=== PATIENT | male | born 1975 | race African-American/Black ===

== ENCOUNTER 2024-12-24 15:53 | Emergency (ER) | payer OTHER ==
[2024-12-24 15:58] VITALS: RESP 18; TEMP 98.3; BMI 23.7
[2024-12-24] MEDS ORDERED: MAG HYDROX/AL HYDROX/SIMETH 30 ML UNIT-DOSE CUP ONE (17:19)
[2024-12-24] MEDS ORDERED: FAMOTIDINE 20 MG/50 ML IVPB 20 MG/50 ML MG IVPB ONE (17:19)
[2024-12-24] MEDS ORDERED: ONDANSETRON 4 MG/2 ML VIAL ONE (17:19)
[2024-12-24] MEDS: ONDANSETRON 4 MG/2 ML VIAL IVPUSH ONE (17:50)
[2024-12-24] MEDS: MAG HYDROX/AL HYDROX/SIMETH 30 ML UNIT-DOSE CUP PO ONE (17:54)
[2024-12-24] MEDS: SODIUM CHLORIDE 0.9% 500 ML INFUS.BAG IV ONE (17:55)
[2024-12-24] MEDS: FAMOTIDINE 20 MG/50 ML IVPB 20 MG/50 ML MG IVPB ONE (17:55)
[2024-12-24 18:12] LABS: EPI CELLS 4 /uL (0-25.1); HYALINE CASTS 2 /uL (0-3.1); URINE APPEARANCE CLEAR; URINE BACTERIA 17 /uL (0-1359); URINE BILIRUBIN 1+ (NEGATIVE); URINE COLOR DK YELLOW; URINE GLUCOSE (UA) NEGATIVE (NEGATIVE); URINE KETONE TRACE (NEGATIVE); URINE LEUK ESTERASE TRACE (NEGATIVE); URINE NITRITE NEGATIVE (NEGATIVE); URINE PROTEIN 2+ (NEGATIVE); URINE RBC 63 /uL (0-23.9); URINE UROBILINOGEN 1.0 mg/dL (0.2-1.0); URINE WBC 11 /uL (0-25.8)
[2024-12-24 18:25] LABS: MCHC 35.5 g/dl (32.3-36.5); MEAN CELL VOLUME 89.4 fl (79.0-92.2); MEAN PLT VOLUME 9.0 fl (9.4-12.4); RDW 11.4 % (12.1-15.9)
[2024-12-24 18:43] LABS: GLUCOSE,RANDOM 109.0 mg/dL (74-106); TOT PROT 7.6 g/dl (6.4-8.2)
[2024-12-24 18:44] LABS: CO2 20.0 mmol/L (21-32)
[2024-12-24 18:46] LABS: ALK PHOS 92.0 U/L (40-150)
[2024-12-24 18:48] LABS: SGOT/AST 35.0 U/L (5-34); SGPT/ALT 20.0 U/L (0-55)
[2024-12-24 18:49] LABS: CREATININE 1.31 mg/dL (0.55-1.3)
[2024-12-24 19:48] VITALS: BP 119/78; PULSE 82
== END 2024-12-24 21:13 | disposition home or self-care (01) ==
LOC: JER 15:53
PROC: 3E033GC Introduction of Other Therapeutic Substance into Peripheral Vein, Percutaneous Approach (ICD-10-PCS; principal; 2024-12-24)
PROC: 3E033GC Introduction of Other Therapeutic Substance into Peripheral Vein, Percutaneous Approach (ICD-10-PCS; 2024-12-24)
DX: U07.1 COVID-19 (principal); R10.13 Epigastric pain; R11.2 Nausea with vomiting, unspecified; R19.7 Diarrhea, unspecified; R06.02 Shortness of breath; R07.9 Chest pain, unspecified
CPT/HCPCS: 36415; 71046-TC-FY; 80053; 81003; 83690; 83735; 84484; 85025; 87086; 87637-QW; 93005; 93010; 99285-25